=== PATIENT | female | born 1985 | race Two or more races ===

== ENCOUNTER 2024-01-28 02:44 | Emergency (ER) | payer OTHER ==
[~2024-01-28] VITALS: Ht 170.2 cm; Wt 59.0 kg
[2024-01-28 03:27] LABS: BASOPHILS % (AUTO) 0.4 % (0.0-2.0); EOSINOPHILS % (AUTO) 0.1 % (0.0-6.0); HEMATOCRIT 40 % (33-45); HEMOGLOBIN 13.7 g/dL (11.5-14.8); LYMPHOCYTES % (AUTO) 12.4 % (20.0-44.0); MEAN CORPUSCULAR HEMOGLOBIN 31 PG (26.0-33.0); MEAN CORPUSCULAR HGB CONC 34 g/dl (31.0-36.0); MEAN CORPUSCULAR VOLUME 92 fL (82-100); MONOCYTES # (AUTO) 0.3 K/uL (0.1-1.30); MONOCYTES % (AUTO) 4.4 % (2.0-12.0); NEUTROPHILS # (AUTO) 6.3 K/uL (1.8-8.9); NEUTROPHILS % (AUTO) 82.7 % (43.0-81.0); PLATELET COUNT (AUTO) 201 K/uL (150-450); RED BLOOD CELL COUNT(AUTO) 4.37 MIL/uL (4.0-5.2); RED CELL DISTRIBUTION WIDTH 13.8 % (11.5-15.0); WHITE BLOOD COUNT (AUTO) 7.7 K/uL (4.3-11.0)
[2024-01-28] MEDS: KETOROLAC TROMETHAMINE INJ 30 MG/ML VIAL IV ONE (03:30)
[2024-01-28 03:38] LABS: CALCIUM, SERUM 8.7 mg/dL (8.5-10.1); CREATININE 0.6 mg/dL (0.6-1.3); POTASSIUM 3.5 mmol/L (3.5-5.1)
[2024-01-28 03:51] LABS: ALBUMIN 4.3 g/dL (3.4-5.0); BILIRUBIN,TOTAL 0.2 mg/dL (0.2-1.0)
[2024-01-28] MEDS ORDERED: KETOROLAC TROMETHAMINE INJ 30 MG/ML VIAL ONE (03:59)
[2024-01-28] MEDS ORDERED: CT SWABBABLE VALVE TRANS SET 1 EA INFUS.SET MC ONE (04:19)
[2024-01-28] MEDS ORDERED: IV NS 0.9% 250 ML IV ONE (04:19)
[2024-01-28] MEDS ORDERED: IOHEXOL-300 100 ML VIAL IV ONE (04:19)
[2024-01-28 04:38] LABS: APPEARANCE,URINE CLEAR (CLEAR); BILIRUBIN,URINE NEGATIVE (NEGATIVE); BLOOD, URINE TRACE-INTA Ery/uL (NEGATIVE); KETONES,URINE NEGATIVE (NEGATIVE); LEUKOCYTE ESTERASE ,URINE TRACE (NEGATIVE); NITRITE, URINE NEGATIVE (NEGATIVE); PROTEIN,URINE NEGATIVE (NEGATIVE); UGLUCOSE NEGATIVE (NEGATIVE); UROBILINOGEN,URINE 0.2 EU/dL (0.2)
[2024-01-28 04:49] LABS: COLOR,URINE STRAW (YELLOW)
[2024-01-28 04:56] LABS: AMPHETAMINE, URINE NEGATIVE (NEGATIVE); BARBITURATE, URINE NEGATIVE (NEGATIVE); BENZODIAZEPINE, URINE NEGATIVE (NEGATIVE); CANNABINOID, URINE NEGATIVE (NEGATIVE); COCCAINE, URINE NEGATIVE (NEGATIVE); OPIATE, URINE NEGATIVE (NEGATIVE); PHENCYCLIDINE SCREEN,URINE NEGATIVE (NEGATIVE)
[2024-01-28 05:18] LABS: ADD URINE CULTURE NO; BACTERIA,URINE None seen /HPF (None Seen); RBC,URINE 0-2 /HPF (0-2); SQUAMOUS EPITHELIAL CELL,UR Rare /HPF (None Seen); WBC,URINE NONE SEEN /HPF (0-3)
[2024-01-28] MEDS: IV NS 0.9% 1,000 ML IV ONE (06:00)
[2024-01-28] MEDS ORDERED: ACETAMINOPHEN ES 500 MG TABLET ONE (08:20)
[2024-01-28] MEDS: ACETAMINOPHEN 325 MG TABLET PO ONE (08:31)
[2024-01-28] MEDS ORDERED: ACETAMINOPHEN 325 MG TABLET ONE (08:32)
[2024-01-28 08:51] VITALS: BP 118/70; TEMP 98.1; O2SAT 98
== END 2024-01-28 08:51 | disposition home or self-care (01) ==
LOC: ER 02:46
DX: S40.211A Abrasion of right shoulder, initial encounter (principal); R07.89 Other chest pain; R10.2 Pelvic and perineal pain; V89.2XXA Person injured in unspecified motor-vehicle accident, traffic, initial encounter; Y93.9 Activity, unspecified; Y92.488 Other paved roadways as the place of occurrence of the external cause; Y99.8 Other external cause status
CPT/HCPCS: 99285; 96374; 96361; 71260; 85025; 81001; 36415; 80053; 84702; 80320; 80307; J1885; J7030; J7050; Q9967; G0480